=== PATIENT | female | born 1990 | race Caucasian/White ===

== ENCOUNTER 2017-01-03 05:20 | Emergency (ER) | payer MEDICAID ==
[~2017-01-03] VITALS: Ht 165.1 cm; Wt 66.0 kg
[2017-01-03] MEDS ORDERED: SODIUM CHLORIDE FLUSH 10ML SYR IVF ONE (06:00)
[2017-01-03] MEDS ORDERED: VANCOMYCIN PER PHARMACY MC ONE (06:00)
[2017-01-03] MEDS ORDERED: DIPH,PERTUSS(ACELL),TET VAC/PF 0.5 ML IM-VACC ONE ×2 (06:00→06:19)
[2017-01-03] MEDS ORDERED: AMPICILLIN/SULBACTAM 3 GM in SODIUM CHLORIDE 0.9% 100 ML IVPB ONE (06:00)
[2017-01-03] MEDS ORDERED: SODIUM CHLORIDE 0.9% 1,000ML IVBOLUS ONE (06:00)
[2017-01-03 06:24] LABS: BLOOD UREA NITROGEN 11 mg/dL (7-18)
[2017-01-03] MEDS ORDERED: VANCOMYCIN 1,500 MG in SODIUM CHLORIDE 0.9% 250 ML IV ONE (06:30)
[2017-01-03] MEDS ORDERED: OMNIPAQUE 350 MG/ML, 75ML BOTTLE ONE (06:52)
[2017-01-03 07:50] LABS: PATH.CAST-FLAG NOT PRESENT; SPERM-FLAG NOT PRESENT; SRC-FLAG NOT PRESENT; XTAL-FLAG NOT PRESENT; YLC-FLAG NOT PRESENT
[2017-01-03 08:46] LABS: DAU SCREEN DISCLAIMER
[2017-01-03 09:05] VITALS: BP 126/87
== END 2017-01-03 09:49 | disposition home or self-care (01) ==
LOC: ED 05:44
DX: L03.213 Periorbital cellulitis (principal)
CPT/HCPCS: 36415; 70487; 80048; 80307; 81001; 82040; 83605; 84145; 85025; 87040; 90471; 90715; 96365; 96366; 96367; 99285; J0295; J3370; J7030; J7050; Q9967

== ENCOUNTER 2018-04-19 21:06 | Emergency (ER) | payer SELFPAY ==
[~2018-04-19] VITALS: Ht 165.1 cm; Wt 69.8 kg
[2018-04-19] MEDS ORDERED: OLANZAPINE 10 MG TABLET ONE (21:51)
[2018-04-19] MEDS ORDERED: LORazepam 1MG TABLET ONE (21:51)
[2018-04-19] MEDS ORDERED: OLANZAPINE 10 MG TABLET PO ONE (22:00)
[2018-04-19] MEDS ORDERED: LORazepam 1MG TABLET PO ONE (22:00)
[2018-04-20 02:46] VITALS: BP 96/57
== END 2018-04-20 04:17 | disposition home or self-care (01) ==
LOC: ED 22:50
DX: F15.129 Other stimulant abuse with intoxication, unspecified (principal); Z72.9 Problem related to lifestyle, unspecified; R06.00 Dyspnea, unspecified; F41.9 Anxiety disorder, unspecified; Z88.6 Allergy status to analgesic agent
CPT/HCPCS: 71046; 99284

== ENCOUNTER 2020-01-11 14:51 | Emergency (ER) | payer MEDICAID ==
[~2020-01-11] VITALS: Ht 170.2 cm; Wt 79.3 kg
[2020-01-11 15:00] VITALS: BP 132/54
--- NOTE | 2020-01-11 15:58 | NUR ---
LANGUAGE ASSISTANT: PT WALKED BACK FROM LOBBY TO ROOM AT THIS TIME. STEADY UPON AMBULATION. NO ACUTE DISTRESS NOTED.
--- NOTE | 2020-01-11 17:16 | NUR ---
Patient given discharge instructions and Rx, they have confirmed that they understand the instructions. Patient ambulatory with steady gait.
== END 2020-01-11 18:03 | disposition home or self-care (01) ==
LOC: ED 17:19
DX: K04.7 Periapical abscess without sinus (principal); K02.9 Dental caries, unspecified; K08.89 Other specified disorders of teeth and supporting structures
CPT/HCPCS: 99283

== ENCOUNTER 2020-08-20 20:34 | Emergency (ER) | payer MEDICAID ==
[~2020-08-20] VITALS: Ht 165.1 cm; Wt 79.5 kg
[2020-08-20 20:46] VITALS: BP 123/62
== END 2020-08-20 21:51 | disposition home or self-care (01) ==
LOC: ED 21:45
DX: H66.001 Acute suppurative otitis media without spontaneous rupture of ear drum, right ear (principal); H91.91 Unspecified hearing loss, right ear; F17.210 Nicotine dependence, cigarettes, uncomplicated; Z72.9 Problem related to lifestyle, unspecified
CPT/HCPCS: 99283; 99406

== ENCOUNTER 2020-09-09 20:29 | Emergency (ER) | payer MEDICAID ==
[~2020-09-09] VITALS: Ht 167.6 cm; Wt 75.7 kg
[2020-09-09 20:44] VITALS: BP 105/68
== END 2020-09-09 22:55 | disposition home or self-care (01) ==
LOC: ED 21:39
DX: S93.491A Sprain of other ligament of right ankle, initial encounter (principal); W01.0XXA Fall on same level from slipping, tripping and stumbling without subsequent striking against object, initial encounter; Y93.89 Activity, other specified; Y92.009 Unspecified place in unspecified non-institutional (private) residence as the place of occurrence of the external cause; Y99.8 Other external cause status
CPT/HCPCS: 99283

== ENCOUNTER 2020-09-23 17:50 | Emergency (ER) | payer MEDICAID ==
[~2020-09-23] VITALS: Ht 167.6 cm; Wt 73.6 kg
--- NOTE | 2020-09-23 18:22 | NUR ---
pt walked back from triage w chief complaint of left ear pain, decreased hearing, and discharge since yesterday. pt denies chest pain, sob, and recent trauma. pt a&o, resting in bed, nadn.
--- NOTE | 2020-09-23 18:47 | NUR ---
REPORT TO RAQUEL SÁNCHEZ
[2020-09-23 19:09] VITALS: BP 112/67
== END 2020-09-23 19:11 | disposition home or self-care (01) ==
LOC: ED 18:11
DX: H60.13 Cellulitis of external ear, bilateral (principal); H57.13 Ocular pain, bilateral; Z72.9 Problem related to lifestyle, unspecified; F17.210 Nicotine dependence, cigarettes, uncomplicated
CPT/HCPCS: 99406

== ENCOUNTER 2020-10-17 17:16 | Emergency (ER) | payer MEDICAID, OTHER ==
[~2020-10-17] VITALS: Ht 165.1 cm; Wt 69.8 kg
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
--- NOTE | 2020-10-17 18:08 | NUR ---
PT A&O, RESPS EVEN AND UNLABORED, VSS, NADN. EDT AT BEDSIDE TO FIT CRUTCHES.
[2020-10-17 18:38] VITALS: BP 108/74
--- NOTE | 2020-10-17 18:39 | NUR ---
discharge instructions reviewed, pt verbalized understanding. pt a&o, resps even and unlabored, vss, nadn. pt ambulatory with crutches to discharge desk, no complaints at time of discharge
== END 2020-10-17 18:41 | disposition home or self-care (01) ==
LOC: ED 18:06
DX: S93.492A Sprain of other ligament of left ankle, initial encounter (principal); V57.0XXA Driver of pick-up truck or van injured in collision with fixed or stationary object in nontraffic accident, initial encounter; Y93.89 Activity, other specified; Y92.410 Unspecified street and highway as the place of occurrence of the external cause; Y99.8 Other external cause status
CPT/HCPCS: 99283